=== PATIENT | female | born 1945 | race Caucasian/White ===

== ENCOUNTER 2019-02-05 12:13 | Emergency (ER) | payer MEDICARE, OTHER ==
[~2019-02-05] VITALS: Ht 160 cm; Wt 80.7 kg
--- NOTE | 2019-02-05 12:22 | PHYS DOC ---
Past Medical History Past Medical History: Anxiety, Cancer, CVA, Depression, GERD, High Cholesterol, Hypertension, Other Additional Past Medical Histor: breast cancer, cellulitis Past Surgical History: Hysterectomy, Other Additional Past Surgical Histo: bilateral oopherectomy, bilateral mastectomy Alcohol Use: None Drug Use: None Adult General HPI HPI Patient is a 74 y/o WF who presents to the ED via EMS. She states that when she stood up getting off the toilet, her left leg, which often goes numb after having had a stroke in the past, gave out on her, and she wound up falling to the floor. She injured her left foot and is complaining of left foot pain, primarily in the area of the base of the fifth metatarsal. She denies any ankle pain, or any other left lower extremity pain, or any other injuries. She did not hit her head and denies any headache, neck pain, or back pain. She denies any dizziness, lightheadedness, or new numbness or weakness. Palpation of the affected area worsens her pain. There are no alleviating factors to her symptoms. Review of Systems Review of Systems Constitutional: Denies fever or chills [] Eyes: Denies change in visual acuity, redness, or eye pain [] HENT: Denies nasal congestion or sore throat [] Respiratory: Denies cough or shortness of breath [] Cardiovascular: The patient denies any shortness of breath, chest pain, palpitations, or orthopnea[] GI: Denies abdominal pain, nausea, vomiting, bloody stools or diarrhea [] : Denies dysuria or hematuria [] Musculoskeletal: Denies back pain or joint pain. Reports left foot pain as noted in the history of present illness [] Neurologic: Denies headache, new focal weakness or sensory changes [] Current Medications Current Medications Current Medications Medications (Trade) Dose Ordered Sig/Emily Start Time Stop Time Status Last Admin Dose Admin Acetaminophen (Tylenol) 1,000 mg 1X ONCE 02/05/19 12:45 02/05/19 12:46 Allergies Allergies Allergies Coded Allergies Type Severity Reaction Last Updated Verified ciprofloxacin Allergy Intermediate RASH 06/03/14 Yes clindamycin Allergy Intermediate 06/03/14 No dicyclomine Allergy Intermediate RASH 06/03/14 Yes metoclopramide Allergy Intermediate 06/03/14 No sulfamethoxazole Allergy Intermediate ITCHING 06/03/14 Yes tramadol Allergy Intermediate 06/03/14 No trimethoprim Allergy Intermediate ITCHING 06/03/14 Yes Physical Exam Physical Exam PHYSICAL EXAM: CONSTITUTIONAL: Well developed, well nourished HEAD: normocephalic, atraumatic EENT: PERRL, EOMI. Conjunctivae normal color, sclerae non-icteric; moist mucous membranes. NECK: Supple, non-tender; no meningismus.There is full, painless range of motion of the cervical spine, without any focal bony midline tenderness to palpation. LUNGS: Lungs CTA, breathing even and unlabored. Normal air movement. HEART: Regular rate and rhythm, no murmur CHEST: No deformity; non-tender ABDOMEN: The abdomen is soft, and non-tender, no masses or bruits. EXTREM: There is tenderness to palpation to the left foot, laterally, over the fifth metatarsal and dorsum of the left midfoot, without any deformity, or obvious bruising. PMS are intact. There is normal range of motion in the ankle without any ankle tenderness to palpation. The remainder the left lower extremity and other extremities are atraumatic, with Normal ROM; no deformity, no calf tenderness. Normal pulses palpable in all extremities. There is no pedal edema. SKIN: No rash; no diaphoresis NEURO: Alert; normal speech and cognition; CN's grossly intact; strength grossly intact without focal deficit. BACK: No CVA TTP.There is no bony tenderness to palpation of the thoracic or lumbar spine. EKG EKG [] Radiology/Procedures Radiology/Procedures [PROCEDURE: FOOT LEFT 3V 3 view study of the left foot Clinical indications: Fall and pain. FINDINGS: There is a nondisplaced transverse fracture of the proximal metaphysis of the fifth metatarsal bone. No dislocation or lytic process is seen. IMPRESSION: Acute fracture of the proximal fifth metatarsal bone.] Course & Med Decision Making Course & Med Decision Making Pertinent Imaging studies reviewed. (See chart for details) []12:50 PM: Pt condition remains stable. Case d/w Dr Luz, ortho, who recommended post-op shoe, and f/u. I have requested that ER Nurse place a post- op shoe. Discussed test results with patient, need for f/u, and return precautions. Dragon Disclaimer Dragon Disclaimer This electronic medical record was generated, in whole or in part, using a voice recognition dictation system. Departure Departure Impression: Primary Impression: Metatarsal fracture Disposition: 01 HOME, SELF-CARE Condition: STABLE Referrals: RADHA LUZ MD Patient Instructions: Metatarsal Fracture, Undisplaced Additional Instructions: Tylenol/Motrin as needed for pain. BYRON ELIZONDO MD Feb 05, 2019 12:22
--- NOTE | 2019-02-05 12:39 | RAD ---
3 view study of the left foot Clinical indications: Fall and pain. FINDINGS: There is a nondisplaced transverse fracture of the proximal metaphysis of the fifth metatarsal bone. No dislocation or lytic process is seen. IMPRESSION: Acute fracture of the proximal fifth metatarsal bone. Electronically signed by: Phil Giles MD (02/05/2019 12:37 PM) [id number]
[2019-02-05] MEDS ORDERED: ACETAMINOPHEN 500 MG TABLET PO ONE (12:45)
[2019-02-05 13:30] VITALS: BP 126/60
== END 2019-02-05 14:13 | disposition home or self-care (01) ==
LOC: ER 12:13
DX: S92.352A Displaced fracture of fifth metatarsal bone, left foot, initial encounter for closed fracture (principal); F41.9 Anxiety disorder, unspecified; F32.9 Major depressive disorder, single episode, unspecified; K21.9 Gastro-esophageal reflux disease without esophagitis; E78.00 Pure hypercholesterolemia, unspecified; I10 Essential (primary) hypertension; Z86.73 Personal history of transient ischemic attack (TIA), and cerebral infarction without residual deficits; Z90.13 Acquired absence of bilateral breasts and nipples; Z85.3 Personal history of malignant neoplasm of breast; Z88.1 Allergy status to other antibiotic agents; Z88.5 Allergy status to narcotic agent; Z88.8 Allergy status to other drugs, medicaments and biological substances; Z88.2 Allergy status to sulfonamides; W18.11XA Fall from or off toilet without subsequent striking against object, initial encounter; Y93.89 Activity, other specified; Y92.89 Other specified places as the place of occurrence of the external cause; Y99.8 Other external cause status
CPT/HCPCS: 73630; 99284

== ENCOUNTER 2019-03-26 13:50 | Emergency (ER) | payer MEDICARE, OTHER ==
[~2019-03-26] VITALS: Ht 167.6 cm; Wt 80.7 kg
[2019-03-26] MEDS ORDERED: IPRATRPIUM/ALBUTEROL 0.5/2.5MG 3 ML NEBU. NEB ONE (14:00)
--- NOTE | 2019-03-26 14:19 | RAD ---
CHEST AP ONLY History: Cough Comparison: None. Findings: Single view of the chest is submitted. There is some gas lucency beneath the left hemidiaphragm. There is no lobar consolidation, pleural fluid, pneumothorax. Impression: 1. There is gas lucency beneath the left hemidiaphragm, difficult to exclude free air although could be due to gas filled bowel especially if there are no abdominal symptoms. Findings discussed with WILL RICE at 03/26/2019 2:15 PM. Electronically signed by: Dami Cardenas MD (03/26/2019 2:16 PM) [facility]
--- NOTE | 2019-03-26 15:13 | RAD ---
PQRS Compliance Statement: One or more of the following individualized dose reduction techniques were utilized for this examination: 1. Automated exposure control 2. Adjustment of the mA and/or kV according to patient size 3. Use of iterative reconstruction technique CT ABDOMEN PELVIS WO CONTRAST Clinical Indication: Air under left hemidiaphragm. Comparison: AP chest, earlier same day. Technique: Helical CT imaging of the abdomen and pelvis is performed without IV or oral contrast. Findings: Evaluation of solid organs and bowel is limited without oral and IV contrast, decreasing sensitivity for detection of pathology. Minimal atelectasis or scarring in the lung bases. No intraperitoneal free air. Coronary artery disease. Cardiac size normal. There are a few subcentimeter subtle hypodensities in the liver, too small to further characterize. Cholecystectomy. Spleen, pancreas, and adrenal glands are normal. Severe atherosclerotic calcification of the abdominal aorta, no aneurysm. 2 mm nonobstructing calculus lower pole of left kidney. There is no hydronephrosis. Stomach is distended with fluid and air. Correlate to recent by mouth intake. No gastric wall thickening. There is no dilated small bowel. There is moderate colon stool volume. Short segment narrowing of the mid transverse colon may be due to peristalsis, image 95. No colon wall thickening is identified. Appendix is not identified. If not surgically absent, no secondary signs of appendicitis. No abdominal adenopathy or free fluid. Urinary bladder is normal. Hysterectomy. No pelvic free fluid. There is mild right convexity lumbar scoliosis. Disc space narrowing and vacuum disc phenomenon lower lumbar spine. There are reactive endplate changes. IMPRESSION: 1. No acute abdominal or pelvic abnormality. No intraperitoneal free air. 2. Moderate colon stool volume suggests constipation. 3. There is a 2 mm nonobstructing left renal calculus. Electronically signed by: Kobe Magana MD (03/26/2019 3:10 PM) [facility]
--- NOTE | 2019-03-26 15:20 | PHYS DOC ---
Past Medical History Past Medical History: Anxiety, Cancer, CVA, Depression, GERD, High Cholesterol, Hypertension, Other Additional Past Medical Histor: breast cancer, cellulitis Past Surgical History: Hysterectomy, Other Additional Past Surgical Histo: bilateral oopherectomy, bilateral mastectomy Alcohol Use: None Drug Use: None Adult General Chief Complaint Chief Complaint: SORE THROAT HPI HPI Patient is a 74-year-old female who presents with complaint of dry cough and a sore throat for the last couple of days. Patient does admit to some congestion. She states that she is getting some soreness in her chest from all the coughing. She rates that pain at a 7 out of 10. She denies any fever. She denies any nausea, vomiting or diaphoresis. She also denies any shortness of breath.[] Review of Systems Review of Systems Constitutional: Denies fever or chills [] HENT: Positive congestion and sore throat [] Respiratory: Positive cough without shortness of breath [] Cardiovascular: No additional information not addressed in HPI [] GI: Denies abdominal pain, nausea, vomiting or diarrhea [] Integument: Denies rash or skin lesions [] Neurologic: Denies headache, focal weakness or sensory changes [] All other systems were reviewed and found to be within normal limits, except as documented in this note. Current Medications Current Medications Current Medications Medications (Trade) Dose Ordered Sig/Emily Start Time Stop Time Status Last Admin Dose Admin Albuterol/ Ipratropium (Duoneb) 3 ml 1X ONCE 03/26/19 14:00 03/26/19 14:01 DC 03/26/19 14:13 3 ML Allergies Allergies Allergies Coded Allergies Type Severity Reaction Last Updated Verified ciprofloxacin Allergy Intermediate RASH 06/03/14 Yes clindamycin Allergy Intermediate 06/03/14 No dicyclomine Allergy Intermediate RASH 06/03/14 Yes metoclopramide Allergy Intermediate 06/03/14 No sulfamethoxazole Allergy Intermediate ITCHING 06/03/14 Yes tramadol Allergy Intermediate 06/03/14 No trimethoprim Allergy Intermediate ITCHING 06/03/14 Yes Physical Exam Physical Exam Constitutional: Well developed, well nourished, no acute distress, non-toxic appearance. [] HENT: Normocephalic, atraumatic, bilateral external ears normal, pharyngeal erythema without exudates is noted, nose normal. [] Eyes: PERRLA, EOMI, conjunctiva normal, no discharge. [] Neck: Normal range of motion, no tenderness, supple, no stridor. [] Cardiovascular: Regular rate and rhythm[] Lungs & Thorax: Fine rhonchi are noted bilaterally to auscultation [] Abdomen: Bowel sounds normal, soft, no tenderness. [] Skin: Warm, dry, no erythema, no rash. [] Extremities: No tenderness, no cyanosis, no clubbing, ROM intact. [] Neurologic: Alert and oriented X 3, no focal deficits noted. [] Current Patient Data Vital Signs Vital Signs Date Time Temp Pulse Resp B/P (MAP) Pulse Ox O2 Delivery O2 Flow Rate FiO2 03/26/19 14:15 91 Room Air 03/26/19 13:51 98.3 66 18 152/64 (93) 98.3 EKG EKG [] Radiology/Procedures Radiology/Procedures [] Impressions: PROCEDURE: CT ABDOMEN PELVIS WO CONTRAST PQRS Compliance Statement: One or more of the following individualized dose reduction techniques were utilized for this examination: 1. Automated exposure control 2. Adjustment of the mA and/or kV according to patient size 3. Use of iterative reconstruction technique CT ABDOMEN PELVIS WO CONTRAST Clinical Indication: Air under left hemidiaphragm. Comparison: AP chest, earlier same day. Technique: Helical CT imaging of the abdomen and pelvis is performed without IV or oral contrast. Findings: Evaluation of solid organs and bowel is limited without oral and IV contrast, decreasing sensitivity for detection of pathology. Minimal atelectasis or scarring in the lung bases. No intraperitoneal free air. Coronary artery disease. Cardiac size normal. There are a few subcentimeter subtle hypodensities in the liver, too small to further characterize. Cholecystectomy. Spleen, pancreas, and adrenal glands are normal. Severe atherosclerotic calcification of the abdominal aorta, no aneurysm. 2 mm nonobstructing calculus lower pole of left kidney. There is no hydronephrosis. Stomach is distended with fluid and air. Correlate to recent by mouth intake. No gastric wall thickening. There is no dilated small bowel. There is moderate colon stool volume. Short segment narrowing of the mid transverse colon may be due to peristalsis, image 95. No colon wall thickening is identified. Appendix is not identified. If not surgically absent, no secondary signs of appendicitis. No abdominal adenopathy or free fluid. Urinary bladder is normal. Hysterectomy. No pelvic free fluid. There is mild right convexity lumbar scoliosis. Disc space narrowing and vacuum disc phenomenon lower lumbar spine. There are reactive endplate changes. IMPRESSION: 1. No acute abdominal or pelvic abnormality. No intraperitoneal free air. 2. Moderate colon stool volume suggests constipation. 3. There is a 2 mm nonobstructing left renal calculus. Electronically signed by: Kobe Magana MD (03/26/2019 3:10 PM) [facility] DICTATED and SIGNED BY: KOBE MAGANA MD DATE: 03/26/19 1510 CHEST AP ONLY History: Cough Comparison: None. Findings: Single view of the chest is submitted. There is some gas lucency beneath the left hemidiaphragm. There is no lobar consolidation, pleural fluid, pneumothorax. Impression: 1. There is gas lucency beneath the left hemidiaphragm, difficult to exclude free air although could be due to gas filled bowel especially if there are no abdominal symptoms. Findings discussed with WILL RICE at 03/26/2019 2:15 PM. Electronically signed by: Dami Cardenas MD (03/26/2019 2:16 PM) [facility] Course & Med Decision Making Course & Med Decision Making Pertinent Labs and Imaging studies reviewed. (See chart for details) [] Dragon Disclaimer Dragon Disclaimer This electronic medical record was generated, in whole or in part, using a voice recognition dictation system. Departure Departure Impression: Primary Impression: Upper respiratory infection Disposition: 01 HOME, SELF-CARE Condition: STABLE Referrals: CASSIE MAYORGA MD (PCP) Patient Instructions: Upper Respiratory Infection, Adult Problem Qualifiers Primary Impression: Upper respiratory infection URI type: unspecified viral URI Qualified Codes: J06.9 - Acute upper r espiratory infection, unspecified WILL RICE Jr. DO Mar 26, 2019 15:20
[2019-03-26 16:08] VITALS: BP 154/67
== END 2019-03-26 16:45 | disposition home or self-care (01) ==
LOC: ER 13:50
DX: J06.9 Acute upper respiratory infection, unspecified (principal); K21.9 Gastro-esophageal reflux disease without esophagitis; E78.00 Pure hypercholesterolemia, unspecified; I10 Essential (primary) hypertension; Z86.73 Personal history of transient ischemic attack (TIA), and cerebral infarction without residual deficits; Z88.1 Allergy status to other antibiotic agents; Z88.2 Allergy status to sulfonamides; Z88.6 Allergy status to analgesic agent; Z88.8 Allergy status to other drugs, medicaments and biological substances
CPT/HCPCS: 71045; 74176; 94640; 99284; J7620